=== PATIENT | female | born 2000 | race Caucasian/White ===

== ENCOUNTER 2024-06-24 23:18 | Emergency (ER) | payer BC ==
[2024-06-24 23:52] LABS: BASOPHILS ABSOLUTE AUTO 0.03 K/uL (0.00-0.20); BASOPHILS PERCENT AUTO 0.2 % (0.0-1.0); EOSINOPHILS ABSOLUTE AUTO 0.02 K/uL (0.00-0.45); EOSINOPHILS PERCENT AUTO 0.1 % (0.0-6.0); HEMATOCRIT 46.3 % (37.0-47.0); HEMOGLOBIN 15.1 g/dL (12.0-16.0); IMMATURE GRAN ABSOLUTE AUTO 0.03 K/uL (0.00-0.05); IMMATURE GRAN PERCENT AUTO 0.2 % (0.0-0.4); LYMPHOCYTES ABSOLUTE AUTO 1.09 K/uL (1.00-4.80); LYMPHOCYTES PERCENT AUTO 7.9 % (24.0-44.0); MEAN CORPUSCULAR HEMOGLOBIN 27.1 pg (28.0-32.0); MEAN CORPUSCULAR HGB CONC 32.6 g/dL (32.0-36.0); MEAN PLATELET VOLUME 10.9 fL (9.4-12.3); MONOCYTES ABSOLUTE AUTO 0.77 K/uL (0.00-0.80); MONOCYTES PERCENT AUTO 5.6 % (0.0-8.0); NEUTROPHILS ABSOLUTE AUTO 11.81 K/uL (1.80-7.70); PLATELET COUNT,PLT 310 K/uL (150-400); RED BLOOD CELL COUNT 5.58 M/uL (4.10-5.30); WHITE BLOOD CELL COUNT,WBC 13.75 K/uL (3.9-11.3)
[2024-06-24] MEDS: Sodium Chloride 0.9% 1,000 ML IV ONE (23:58)
[2024-06-24] MEDS: Famotidine 20 MG/2 ML SDV IVPUSH ONE (23:58)
[2024-06-24] MEDS: Ondansetron 4 MG/2 ML SDV IVPUSH ONE (23:58)
[2024-06-25 00:13] LABS: A/G RATIO 1.2 (0.9-1.6); ALANINE AMINOTRANSFERASE,ALT 26 IU/L (14-63); ALBUMIN 4.1 g/dL (3.4-5.0); ALKALINE PHOSPHATASE 74 U/L (46-116); ASPARTATE AMNIOTRANSFERASE,AST 23 IU/L (15-37); BILIRUBIN TOTAL 0.4 mg/dL (0.2-1.0); BLOOD UREA NITROGEN,BUN 19 mg/dL (7.0-18.0); CALCIUM 9.2 mg/dL (8.5-10.1); CARBON DIOXIDE,CO2 24.5 mmol/L (21.0-32.0); CHLORIDE,CL 105 mmol/L (98-107); CREATININE 0.9 mg/dL (0.6-1.0); GLUCOSE RANDOM 123 mg/dL (74-106); LIPASE 30 U/L (16-77); POTASSIUM,K 3.7 mmol/L (3.5-5.1); PROTEIN TOTAL,TP 7.6 g/dL (6.4-8.2); SODIUM,NA 142 mmol/L (136-145)
[2024-06-25 00:16] LABS: ESTIMATED GFR 93 mL/min (>60)
[2024-06-25 00:39] LABS: BILIRUBIN,URINE NEGATIVE (NEGATIVE); COLOR,URINE DARK YELLOW; GLUCOSE,URINE NEGATIVE (NEGATIVE); KETONES,URINE NEGATIVE (NEGATIVE); LEUKOCYTE ESTERASE,URINE TRACE (NEGATIVE); NITRITE,URINE POSITIVE (NEGATIVE); OCCULT BLOOD,URINE NEGATIVE (NEGATIVE); PH,URINE 5.5 (5.0-8.0); PROTEIN,URINE NEGATIVE (NEGATIVE); UROBILINOGEN,URINE 0.2 EU/dL (<2.0)
[2024-06-25 00:40] LABS: APPEARANCE,URINE HAZY
[2024-06-25 00:45] LABS: AMORPHOUS SEDIMENT,URINE FEW (NEGATIVE); BACTERIA,URINE 1+ (NEGATIVE); EPITHELIAL CELLS,URINE MODERATE (NONE-FEW); MUCUS,URINE FEW (NONE-MOD); RBC,URINE 0-2 (0-2/HPF)
[2024-06-25] MEDS: cefTRIAXone 2 GM in Sodium Chloride 0.9% 50 ML IV ONE (01:12)
[2024-06-25] MEDS: Sodium Chloride 0.9% 1,000 ML IV ONE (02:01)
[2024-06-25] MEDS: diphenhydrAMINE 50 MG/ML SDV IVPUSH ONE (02:02)
[2024-06-25] MEDS: Promethazine 25 MG/ML SDV IM ONE (02:02)
[2024-06-25] MEDS: Dextrose 5%-0.9% NaCl 1,000 ML IV SCH (03:43)
[2024-06-25] MEDS: Haloperidol Lactate 5 MG/ML SDV IM ONE (03:45)
[2024-06-25] MEDS: Loperamide 2 MG Cap PO ONE (06:01)
[2024-06-25 06:33] VITALS: BP 113/63; PULSE 94
== END 2024-06-25 06:39 | disposition home or self-care (01) ==
LOC: MW.ED 23:18
DX: N30.00 Acute cystitis without hematuria (principal); R11.2 Nausea with vomiting, unspecified; R19.7 Diarrhea, unspecified; I10 Essential (primary) hypertension; J45.909 Unspecified asthma, uncomplicated; Z87.891 Personal history of nicotine dependence; Z88.6 Allergy status to analgesic agent; Z79.899 Other long term (current) drug therapy
CPT/HCPCS: 36415; 80053; 81001; 83690; 84703; 85025; 87086; 87428; 96361; 96365; 96372; 96375; 99284; A9270; J0696; J1200; J1630; J2405; J2550; J3490; J7030; J7042; 87088; 87186